=== PATIENT | male | born 1995 | race African-American/Black ===

== ENCOUNTER 2020-07-11 15:35 | Emergency (ER) | payer MEDICAID ==
[~2020-07-11] VITALS: Ht 180.3 cm; Wt 90.7 kg
--- NOTE | 2020-07-11 15:54 | NUR ---
Called patient at [phone] in lobby. No patient waiting in the lobby at this time. Pt is suspected to be in the restroom per registration.
--- NOTE | 2020-07-11 15:55 | NUR ---
Called for patient in the lobby, patient is still not seen in the lobby.
--- NOTE | 2020-07-11 16:19 | Emergency Room Report ---
History of Present Illness General Chief Complaint: To Be Triaged Present Illness HPI Patient left prior to triage Medical Decision Making Diagnostic Impression: Primary Impression: lwbs Disposition: LEFT W/OUT BEING SEEN Condition: Unknown Roseann Montgomery M.D. Jul 11, 2020 16:19
--- NOTE | 2020-07-11 16:41 | NUR ---
pt arrives to ER with complaints of left ear pain x few days.
[2020-07-11] MEDS ORDERED: AUGMENTIN 875-1 EAC1 ORAL (16:59)
[2020-07-11] MEDS ORDERED: DEBROX15 M1 BOTH EARS (16:59)
--- NOTE | 2020-07-11 17:02 | Emergency Room Report ---
History of Present Illness General Chief Complaint: Earache Source: Patient Present Illness HPI Patient is a 24-year-old male presents to the ER complaining of left-sided earache for the past week. He denies any fever or chills. He denies any head trauma or loss of consciousness. He denies any chest pain or cough. Patient denies any dizziness. He denies any neck stiffness or rash. Incidentally patient was seen here earlier today he registered but left before triage and now returns. COVID-19 Screening Contact w/high risk pt: No Experienced COVID-19 symptoms?: No COVID-19 Testing performed [employer] INSPECTOR: No Patient History Reviewed Nursing Documentation: PMH: Agreed; PSxH: Agreed Review of Systems All Other Systems: negative except mentioned in HPI Physical Exam Vital Signs Date Time Temp Pulse Resp B/P (MAP) Pulse Ox O2 Delivery O2 Flow Rate FiO2 07/11/20 16:13 98.6 107 20 123/66 (85) 92 Room Air Sp02 EP Interpretation: reviewed, normal General Appearance: no apparent distress, alert, GCS 15, non-toxic Head: normocephalic, atraumatic Eyes: bilateral eye normal inspection, bilateral eye PERRL ENT: other - Bilateral cerumen impaction small part of the left tympanic membrane that I can visualize appears erythematous Neck: full range of motion, no meningismus Respiratory: chest non-tender, lungs clear Cardiovascular #1: regular rate, rhythm Gastrointestinal: non tender, soft, no guarding, no rebound Rectal: deferred Musculoskeletal: normal range of motion Neurologic: shipping and receiving weigher III-XII nml as tested, oriented x3 Psychiatric: no suicidal/homicidal ideation Skin: no rash Lymphatic: no adenopathy Medical Decision Making Diagnostic Impression: Primary Impression: Impacted cerumen Additional Impression: Otitis media ER Course After discussing risks and benefits of further diagnostics, treatment plans, as well as indications for and risks of admission, the patient is agreeable to being discharged home. I have explained that their evaluation and treatment in the emergency department today is an important step towards them achieving better health but that their evaluation today is not intended to replace further evaluation and treatment by a physician in their local clinic. I have explained that while the current findings suggest no immediate life threatening emergency they will require further evaluation and treatment by a physician of their choice in their area. They understand that it will be necessary for them to review the final reports of their ED visit with their clinic physician. We have reviewed indications for return to the Emergency Department. I have explained that additional time may need to pass and/or additional testing as an outpatient may be necessary before a definitive diagnosis can be made. They tell me they are willing to follow up as instructed within the timeframe I recommend. They appear to understand what we discussed. Additionally they understand that if they are unable to be seen by an outpatient physician they are welcome, and in fact should, return to the Emergency Department for a repeat evaluation. The patient is stable at time of discharge. Last Vital Signs Date Time Temp Pulse Resp B/P (MAP) Pulse Ox O2 Delivery O2 Flow Rate FiO2 07/11/20 16:13 98.6 107 20 123/66 (85) 92 Room Air Disposition: HOME, SELF-CARE Condition: Stable Scripts Amoxicillin/Potassium Clav 875-125* (AUGMENTIN 875-125 TABLET*) 1 Each Tablet 1 TAB ORAL TWICE A DAY, #14 TAB Prov: Roseann Montgomery M.D. 07/11/20 Carbamide Peroxide (DEBROX) 15 Ml Drops 10 DROP BOTH EARS TWICE A DAY for 4 Days, ML 0 Refills Prov: Roseann Montgomery M.D. 07/11/20 Referrals: [facility]. [facility] Patient Instructions: Cerumen Impaction, Otitis Media, Adult, [id number] Additional Instructions: the patient was provided with discharge instructions, notified to follow-up with a primary care doctor and or specialist in the next 24-48 hours, and to ret urn to the ED if they have worsening of their symptoms. Please note that this report is being documented using [employer] technology. This can lead to erroneous entry secondary to incorrect interpretation by the dictating instrument. Roseann Montgomery M.D. Jul 11, 2020 17:02
[2020-07-11 17:10] VITALS: BP 123/66
== END 2020-07-11 17:14 | disposition home or self-care (01) ==
LOC: EMR 16:40
DX: H61.22 Impacted cerumen, left ear (principal); H66.92 Otitis media, unspecified, left ear
CPT/HCPCS: 99282